=== PATIENT | male | born 1995 | race African-American/Black ===

== ENCOUNTER 2017-11-29 07:18 | Emergency (ER) | payer OTHER ==
[~2017-11-29] VITALS: Ht 172.7 cm; Wt 63.5 kg
[~2017-11-29 07:18] MED LIST: ? ANTIDEPRESSANT; AMOCLA875 PO; AMOX250 PO; AMOX500 PO; CIPRSO OD; CODACE30 PO; HYDACE5 PO; HYDACE5325 PO; NAPR375 PO; NEOPOLHYDS OT; Pepcid20 MG PO; RXCODACET PO; RXNEOPOLHC AD; TOBDEXOPSU OP; TOBR.3OPSO OU; Zofran Odt4 MG SL
[2017-11-29 08:05] LABS: Calcium, Ionized (POC) 1.18 mmol/L (1.10-1.46); Chloride (POC) 99 mmol/L (98-108); Creatinine (POC) 0.9 mg/dL (0.8-1.3); Glucose (ISTAT POC) 78 mg/dL (70-99); Potassium (POC) 3.7 mmol/L (3.5-5.5); Sodium (POC) 139 mmol/L (135-148); Total CO2 (POC) 27 mmol/L (21-32)
[2017-11-29] MEDS ORDERED: MECL12.5 PO (08:12)
== END 2017-11-29 08:19 | disposition home or self-care (01) ==
LOC: ER 07:18
PROVIDERS: Emergency Medicine
DX: R42 Dizziness and giddiness (principal); F14.10 Cocaine abuse, uncomplicated; E87.8 Other disorders of electrolyte and fluid balance, not elsewhere classified; F20.9 Schizophrenia, unspecified; F17.200 Nicotine dependence, unspecified, uncomplicated
CPT/HCPCS: 80047; 85014; 99283

== ENCOUNTER 2019-05-12 12:54 | Emergency (ER) | payer MEDICAID ==
[~2019-05-12] VITALS: Ht 172.7 cm; Wt 68.0 kg
[~2019-05-12 12:54] MED LIST changes: +MECL12.5 PO
== END 2019-05-12 13:41 | disposition home or self-care (01) ==
LOC: ER 12:54
DX: L42 Pityriasis rosea (principal); F20.9 Schizophrenia, unspecified; Z87.891 Personal history of nicotine dependence
CPT/HCPCS: 99282

== ENCOUNTER 2019-08-11 14:33 | Emergency (ER) | payer OTHER ==
[~2019-08-11] VITALS: Ht 170.2 cm; Wt 70.8 kg
[2019-08-11] MEDS ORDERED: [UNRECOGNIZED DRUG - OTHER] TOP (14:51)
== END 2019-08-11 14:50 | disposition home or self-care (01) ==
LOC: ER 14:33
DX: B36.0 Pityriasis versicolor (principal); Z87.891 Personal history of nicotine dependence
CPT/HCPCS: 99282

== ENCOUNTER 2020-01-10 01:35 | Emergency (ER) | payer OTHER ==
[~2020-01-10] VITALS: Ht 172.7 cm; Wt 72.6 kg
[~2020-01-10 01:35] MED LIST changes: +[UNRECOGNIZED DRUG - OTHER] TOP
[2020-01-10] MEDS ORDERED: PANT40 PO (09:14)
== END 2020-01-10 02:06 | disposition home or self-care (01) ==
LOC: ER 01:35
DX: R10.13 Epigastric pain (principal); Z87.891 Personal history of nicotine dependence
CPT/HCPCS: 99283